=== PATIENT | female | born 2000 ===

== ENCOUNTER 2022-12-18 06:09 | Inpatient (IN) | payer MEDICAID ==
[2022-12-18] MEDS ORDERED: Sodium Chloride 0.9% 20 ML SDV IV PRN (07:18)
[2022-12-18] MEDS ORDERED: Water For Irrigation,Sterile 1,000 ML Container IRR PRN (07:18)
[2022-12-18] MEDS ORDERED: Butorphanol 1 MG/ML SDV IVPUSH PRN (07:18)
[2022-12-18] MEDS ORDERED: Sodium Chloride 0.9% 2.5 ML Syringe FLUSH PRN (07:18)
[2022-12-18] MEDS ORDERED: Terbutaline 1 MG/ML SDV SUBCUT PRN (07:18)
[2022-12-18] MEDS ORDERED: Lidocaine 1% 50 ML MDV INJECT PRN (07:18)
[2022-12-18] MEDS ORDERED: Sodium Chloride 0.9% 10 ML Syringe FLUSH PRN (07:18)
[2022-12-18] MEDS ORDERED: Methylergonovine 0.2 MG/1 ML Amp IM PRN ×2 (07:18→08:18)
[2022-12-18] MEDS ORDERED: Carboprost Tromethamine 250 MCG/1 ML Amp IM PRN (07:18)
[2022-12-18] MEDS ORDERED: Tranexamic Acid 1,000 MG in Sodium Chloride 0.9% 100 ML IV PRN ×2 (07:18→08:18)
[2022-12-18] MEDS ORDERED: Oxytocin/0.9 % Sodium Chloride 30 UNIT/500 ML BAG IV SCH ×2 (07:30)
[2022-12-18] MEDS ORDERED: Lactated Ringers 1,000 ML IV SCH (07:30)
[2022-12-18] MEDS ORDERED: ePHEDrine 50 MG/ML SDV IVPUSH PRN ×2 (07:38)
[2022-12-18] MEDS ORDERED: Phenylephrine HCl In 0.9% NaCl 1 MG/10 ML Vial IVPUSH PRN (07:38)
[2022-12-18] MEDS ORDERED: Ropivacaine HCl/PF 400 MG in Premix Bag 1 BAG EPIDUR SCH (07:45)
[2022-12-18] MEDS ORDERED: Bisacodyl 10 MG Supp RECTAL PRN (08:18)
[2022-12-18] MEDS ORDERED: Witch Hazel Medicated Pads 40/Jar TOP PRN (08:18)
[2022-12-18] MEDS ORDERED: Acetaminophen 500 MG Tab PO PRN (08:18)
[2022-12-18] MEDS ORDERED: Benzocaine/Menthol 20%-0.5% Spray 78 GM Cannister TOP PRN (08:18)
[2022-12-18] MEDS ORDERED: Lanolin 100% Cream 7 GM Tube TOP PRN (08:18)
[2022-12-18] MEDS ORDERED: Ibuprofen 400 MG Tab PO PRN (08:18)
[2022-12-18] MEDS ORDERED: Docusate Sodium 100 MG Cap PO PRN (08:18)
[2022-12-18] MEDS: Acetaminophen 500 MG Tab PO PRN ×2 (10:33→15:23)
[2022-12-18] MEDS: Ibuprofen 800 MG Tab PO PRN ×2 (10:34→21:08)
[2022-12-18] MEDS: Phenylephrine HCl In 0.9% NaCl 1 MG/10 ML Vial IVPUSH SCH (19:19)
[2022-12-19] MEDS: Ibuprofen 800 MG Tab PO PRN (07:49)
[2022-12-19] MEDS: Acetaminophen 500 MG Tab PO PRN (07:50)
== END 2022-12-19 12:15 | disposition home or self-care (01) | DRG 807 ==
LOC: MW.OBCHECK 06:09 → MW.OB 06:11 → MW.OBCHECK 06:22 → OBSVTOIN 07:54 → MW.OB 12:38
PROVIDERS: ADMIT Obstetrics & Gynecology; ATTEND Obstetrics & Gynecology
PROC: 10E0XZZ Delivery of Products of Conception, External Approach (ICD-10-PCS; principal; 2022-12-18)
PROC: 0KQM0ZZ Repair Perineum Muscle, Open Approach (ICD-10-PCS; 2022-12-18)
PROC: 3E0R3BZ Introduction of Anesthetic Agent into Spinal Canal, Percutaneous Approach (ICD-10-PCS; 2022-12-18)
PROC: 00HU33Z Insertion of Infusion Device into Spinal Canal, Percutaneous Approach (ICD-10-PCS; 2022-12-18)
DX: O48.0 Post-term pregnancy (principal); Z37.0 Single live birth; O77.0 Labor and delivery complicated by meconium in amniotic fluid; O70.1 Second degree perineal laceration during delivery; Z3A.40 40 weeks gestation of pregnancy; Z20.822 Contact with and (suspected) exposure to COVID-19
CPT/HCPCS: 36415; 59025; 59409; 82803; 84112; 85014; 85018; 85027; 86592; 86850; 86900; 86901; A9270-GY; J2590; J7120; U0002